=== PATIENT | male | born 1965 | race Caucasian/White ===

== ENCOUNTER 2016-10-17 14:59 | Emergency (ER) | payer BC ==
--- NOTE | ~2016-10-17 | CT52 ---
[facility] A Service of [facility] & [facility] RADIOLOGY TEXT RESULTS PATIENT: RAINA RICHEY LOCATION: SED : 61 UNIT #: [id number] AGE: [address]: Vahe Knott MD SEX: M ORDER DR: [id number] [place] [id number] E MR#: [id number] Acc #: [id number] NAME: RAINA RICHEY : 1965 SEX: M STUDY DATE/TIME: 10/17/2016 15:38 UNIT: SED ROOM: STUDY DESCRIPTION: CT Cervical Spine Wo Cont Attending Physician: Vahe Knott M.D. Ordering Physician: Vahe Knott M.D. Primary Care Physician: Betsy Holloway M.D. MEDICAL IMAGING REPORT This report is preliminary unless electronic signature is present. EXAM Cervical spine CT HISTORY Neck and shoulder pain resulting in headache for the past 2 weeks. No known trauma. TECHNIQUE Thin-section imaging was obtained from the skull base to the upper thoracic spine and evaluated at bone and soft tissue windows with multiplanar reformats. This CT exam was performed with one or more of the following radiation dose reduction techniques: Automatic exposure control, adjustment of mA and/or kV according to patient size, and iterative reconstruction. FINDINGS Advanced facet arthropathy is seen at C3-4 on the right, with mild to moderate facet disease at the other cervical levels. Moderately severe degenerative changes are seen in all cervical discs with disc space narrowing and anterior and posterior osteophyte formation. Central stenosis is present to a mild degree. Foraminal stenosis is moderate on the right at C2-3 and moderate bilaterally, right worse than left at C3-4, with mild foraminal narrowing at C4-5. At C5-6, there is severe right foraminal narrowing from a large right-sided uncovertebral joint osteophyte. There is moderate bilateral foraminal narrowing at C6-7, with wide patency of the canal and foramina at C7-T1. No fractures or destructive bone lesions are seen. IMPRESSION Moderate multilevel cervical degenerative disc disease. Foraminal stenosis is most severe on the right at C6-7, but also present at C5-6 to a significant degree. Facet hypertrophy is worst on the right at C3-4. No acute bony abnormalities are seen. [facility]. [facility] A Service of [facility] / [facility] RADIOLOGY TEXT RESULTS PATIENT: RAINA RICHEY LOCATION: SED : 61 UNIT #: [id number] AGE: [address]: Vahe Knott MD SEX: M ORDER DR: Dictated by... Keo Garcia M.D. THIS IS AN ELECTRONICALLY VERIFIED REPORT Keo Garcia M.D. at 10/18/2016 7:08 AM SHIRA/henrique TD: 10/18/2016 00:38 JOB #: [id number] MEDICAL IMAGING REPORT Page 1 of 1
--- NOTE | ~2016-10-17 | CT71 ---
[facility] RADIOLOGY TEXT RESULTS PATIENT: RAINA RICHEY LOCATION: SED : 61 UNIT #: [id number] AGE: [address]: Vahe Knott MD SEX: M ORDER DR: [id number] [place] [id number] E MR#: [id number] Acc #: [id number] NAME: RAINA RICHEY : 1965 SEX: M STUDY DATE/TIME: 10/17/2016 16:41 UNIT: SED ROOM: STUDY DESCRIPTION: CT Head Wo Contrast Attending Physician: Vahe Knott M.D. Ordering Physician: Vahe Knott M.D. Primary Care Physician: Betsy Holloway M.D. MEDICAL IMAGING REPORT This report is preliminary unless electronic signature is present. EXAM Head CT without contrast HISTORY Headache, neck and shoulder pain for the past 2 weeks. TECHNIQUE Axial images were obtained without contrast. This CT exam was performed with one or more of the following radiation dose reduction techniques: Automatic exposure control, adjustment of mA and/or kV according to patient size, and iterative reconstruction. FINDINGS The brain images are normal with no evidence of mass lesion, hemorrhage or edema. No midline shift. Extraaxial structures are remarkable for atherosclerotic calcification in both carotid siphons and in both distal vertebral arteries. IMPRESSION Atherosclerotic calcification in the distal vertebrals and both carotid siphons. No acute findings in the brain. Dictated by... Keo Garcia M.D. THIS IS AN ELECTRONICALLY VERIFIED REPORT Keo Garcia M.D. at 10/18/2016 7:08 AM RLF/henrique TD: 10/18/2016 00:47 JOB #: [id number] [facility] RADIOLOGY TEXT RESULTS PATIENT: RAINA RICHEY LOCATION: SED : 61 UNIT #: [id number] AGE: [address]: Vahe Knott MD SEX: M ORDER DR: MEDICAL IMAGING REPORT Page 1 of 1
[~2016-10-17 14:59] MED LIST: ALBUTEROL17 GM INH; AMBIEN PO; ASPIRIN EC81 M1 PO; CELEBREX PO; CHILDREN'S CHE1 EACH PO; COUMADIN PO; COUMADIN5 MG PO; CRESTOR PO; DAKIN'S MODIF1000 ML EXT; DICLOFENAC PO; FEOSOL PO; FIBER1 TAB.CHEW PO; FLEXERIL10 MG PO; HYDROCODON-ACE1 EAC1 PO; HYDROCODON-ACE1 EAC5 PO; HYDROCODON-ACE1 EAC7 PO; IBUPROFEN800 MG PO; LEVAQUIN750 MG PO; LIQUID B-11000 MCG/1; LOPRESSOR PO; LORTAB 10-5001 EACH PO; LOVENOX SUBQ; LOVENOX40 MG/0.4 INJ; MAPAP ARTHRITI650 M1 PO; NORCO 5/325 TAB1 TAB PO; PHARBEDRYL50 MG PO; PREDNISONE PO; TOPROL XL 50 MG50 MG PO; TUMS300 MG( 75 PO; VIT B 12; VITAMIN C500 M7 PO; VOLTAREN75 MG PO; ZETIA PO; ZOCOR PO; ZYVOX600 MG PO
== END 2016-10-17 17:20 | disposition home or self-care (01) ==
LOC: SED 14:59
DX: M54.12 Radiculopathy, cervical region (principal); G44.89 Other headache syndrome; I10 Essential (primary) hypertension; E78.5 Hyperlipidemia, unspecified; F17.210 Nicotine dependence, cigarettes, uncomplicated; Z79.82 Long term (current) use of aspirin
CPT/HCPCS: 70450; 72125; 96372; 99283; J1885